=== PATIENT | female | born 1945 | race Caucasian/White ===

== ENCOUNTER 2021-03-27 18:21 | Emergency (ER) | payer MEDICARE, OTHER ==
[~2021-03-27] VITALS: Ht 160 cm; Wt 47.3 kg
[~2021-03-27 18:21] MED LIST: ANUSOL-HC30 GM PR; DILAUDID4 MG PO; DILTIAZEM HCL10 GM TOP; FERROUS SULFAT325 MG PO; FLUOXETINE HCL20 MG PO; FUROSEMIDE20 MG PO; IBUPROFEN200 M1 PO; IBUPROFEN400 MG PO; IBUPROFEN600 MG PO; IRON SUPPLEMEN325 MG PO; LEVOTHYROXINE50 MCG PO; LISINOPRIL PO; LISINOPRIL-HCT1 EAC2 PO; MAG-OXIDE400 MG PO; MAPAP325 MG PO; METOPROLOL TART25 MG PO; MULTIVITAMINS1 EAC7 PO; OXYCODON-ACETA1 EAC2 PO; PEPTO-BISM262 MG/15 PO; POLYETHYLENE G255 GM PO; TRAMADOL HCL50 MG PO; TYLENOL325 MG PO; VITAMIN B-1100 M1 PO; VITAMIN C60 MG PO; ZOLPIDEM TARTRA10 MG PO
--- NOTE | 2021-03-29 18:44 | EKG ---
[facility] [address] [facility] [place] [address] Signed Normal sinus rhythm Minimal voltage criteria for LVH, may be normal variant Borderline ECG When compared with ECG of 27-FEB-2019 10:49, premature atrial complexes are no longer present ST no longer depressed in Anterolateral leads T wave inversion no longer evident in Inferior leads T wave inversion no longer evident in Anterolateral leads Confirmed by NADJA DIETRICH DO ([id number]) on 03/29/2021 6:44:17 PM Electronically Signed By: NADJA DIETRICH DO 03/29/21 1844 PATIENT NAME: MILTON WALLACE Electrocardiogram DATE OF : 49 PHYSICIAN: NADJA DIETRICH DO REPORT #: [id number] REPORT IS CONFIDENTIAL AND NOT TO BE RELEASED WITHOUT AUTHORIZATION
== END 2021-03-27 21:10 | disposition home or self-care (01) ==
LOC: ED 18:21
DX: R41.0 Disorientation, unspecified (principal); I10 Essential (primary) hypertension; Z87.891 Personal history of nicotine dependence; Z88.2 Allergy status to sulfonamides; Z88.5 Allergy status to narcotic agent; Z79.899 Other long term (current) 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
CPT/HCPCS: 80053; 81001; 82140; 84484; 85025; 93005; 93010; 99285-25; G0480; J7040

== ENCOUNTER 2021-04-06 16:27 | Emergency (ER) | payer MEDICARE, OTHER ==
[~2021-04-06] VITALS: Ht 160 cm; Wt 47.3 kg
--- OUTSIDE RECORDS SUMMARY | 2021-04-06 16:34 | XMS ---
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 Beth VISIT COUNT (12 MO.) 2 [facility] TOTAL 2 NOTE: Visits indicate total known visits. 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
[2021-04-06] MEDS ORDERED: PROZAC20 MG PO (18:38)
[2021-04-06] MEDS ORDERED: ONDANSETRON ODT8 MG PO (18:46)
== END 2021-04-06 19:06 | disposition home or self-care (01) ==
LOC: ED 16:27
DX: R41.0 Disorientation, unspecified (principal); G31.2 Degeneration of nervous system due to alcohol; I10 Essential (primary) hypertension; Z88.5 Allergy status to narcotic agent; Z88.2 Allergy status to sulfonamides; Z79.899 Other long term (current) 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
CPT/HCPCS: 81001; 99285

== ENCOUNTER 2021-07-01 15:40 | Emergency (ER) | payer MEDICARE, OTHER ==
[~2021-07-01] VITALS: Ht 160 cm; Wt 51.5 kg
[~2021-07-01 15:40] MED LIST changes: +ONDANSETRON ODT8 MG PO; +PROZAC20 MG PO
[2021-07-01] MEDS ORDERED: QUETIAPINE FUMA25 MG PO (15:55)
[2021-07-01] MEDS ORDERED: FLUOXETINE HCL20 MG PO (15:55)
== END 2021-07-01 21:00 | disposition home or self-care (01) ==
LOC: ED 15:40
DX: F03.91 Unspecified dementia, unspecified severity, with behavioral disturbance (principal); F22 Delusional disorders; I10 Essential (primary) hypertension; Z88.2 Allergy status to sulfonamides; Z88.5 Allergy status to narcotic agent; Z79.899 Other long term (current) 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
CPT/HCPCS: 80053; 80500; 81001; 82140; 85025; 99284; G0480

== ENCOUNTER 2021-07-03 13:42 | Emergency (ER) | payer MEDICARE, OTHER ==
[~2021-07-03] VITALS: Ht 160 cm; Wt 51.5 kg
[~2021-07-03 13:42] MED LIST changes: +QUETIAPINE FUMA25 MG PO
--- OUTSIDE RECORDS SUMMARY | 2021-07-03 13:54 | XMS ---
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 - 2 Visits in 30 Days CARE PROVIDERS CASANDRA NAPOLES [facility] 04/07/2021-Current PHONE: [phone] [facility] Current PHONE: [phone] Shaun has no Care Guidelines for this patient. Beth VISIT COUNT (12 MO[address] [place] [address] TOTAL 5 NOTE: Visits indicate total known visits. 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 - Essential (primary) hypertension - Other nursing home (current) 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 - Allergy status to sulfonamides - Disorientation, unspecified - Allergy status to narcotic agent 03/27/2021 18:21 [facility] [place] TYPE: Emergency COMPLAINT: - CHEST PAIN DIAGNOSES: - Personal history of nicotine dependence - Chest pain, unspecified - Essential (primary) hypertension - Allergy status to sulfonamides - Disorientation, unspecified - Other rn long term care (current) 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 - Allergy status to narcotic agent INPATIENT VISIT TRACKING (12 MO.) No inpatient visits to display in this time frame [email or web address]
[2021-07-03] MEDS ORDERED: LORAZEPAM0.5 MG PO (19:58)
[2021-07-04] MEDS ORDERED: FLUOXETINE HCL20 MG PO (08:38)
== END 2021-07-03 20:20 | disposition home or self-care (01) ==
LOC: ED 13:42
DX: F03.91 Unspecified dementia, unspecified severity, with behavioral disturbance (principal); I10 Essential (primary) hypertension; Z90.710 Acquired absence of both cervix and uterus; Z90.89 Acquired absence of other organs; Z88.2 Allergy status to sulfonamides; Z88.5 Allergy status to narcotic agent; Z79.899 Other long term (current) 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
CPT/HCPCS: 99284; A9270-GY

== ENCOUNTER 2021-07-04 08:05 | Emergency (ER) | payer MEDICARE, OTHER ==
[~2021-07-04] VITALS: Ht 160 cm; Wt 49.1 kg
[~2021-07-04 08:05] MED LIST changes: +LORAZEPAM0.5 MG PO
--- OUTSIDE RECORDS SUMMARY | 2021-07-04 08:14 | XMS ---
PreManage Notification: MILTON WALLACE Security Family Day Care Provider Events No recent Security Events currently on file CRITERIA MET - [facility] - 2 Visits in 30 Days - 6 ED Visits in 6 Months CARE PROVIDERS CASANDRA N[place]ES [facility] 04/07/2021-Current PHONE: [phone] [facility] Current PHONE: [phone] Sahun has no Care Guidelines for this patient. ESo VISIT COUNT (12 MO.) [address] [place] [address] TOTAL 6 NOTE: Visits indicate total known visits. 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 - Essential (primary) hypertension - Other terminal gauger (current) 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 - Allergy status to sulfonamides - Disorientation, unspecified - Allergy status to narcotic agent 03/27/2021 18:21 [facility] [place] TYPE: Emergency COMPLAINT: - CHEST PAIN DIAGNOSES: - Personal history of nicotine dependence - Chest pain, unspecified - Essential (primary) hypertension - Allergy status to sulfonamides - Disorientation, unspecified - Other senior living (current) 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 - Allergy status to narcotic agent INPATIENT VISIT TRACKING (12 MO.) No inpatient visits to display in this time frame [id number]
[2021-07-04] MEDS ORDERED: FLUOXETINE HCL20 MG PO (08:38)
== END 2021-07-05 12:46 | disposition short-term general hospital (02) ==
LOC: ED 08:05
DX: F03.91 Unspecified dementia, unspecified severity, with behavioral disturbance (principal); I10 Essential (primary) hypertension; Z90.710 Acquired absence of both cervix and uterus; Z90.89 Acquired absence of other organs; Z88.2 Allergy status to sulfonamides; Z88.5 Allergy status to narcotic agent; Z79.899 Other long term (current) 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; Z20.822 Contact with and (suspected) exposure to COVID-19
CPT/HCPCS: 80053; 80500; 81001; 84443; 85025; 99285; A9270-GY; G0480; U0003

== ENCOUNTER 2023-06-13 17:27 | Emergency (ER) | payer MEDICARE, OTHER ==
[~2023-06-13] VITALS: Ht 160 cm; Wt 49.0 kg
[2023-06-13 17:44] LABS: BILIRUBIN, URINE NEGATIVE (negative); BLOOD/HGB, URINE NEGATIVE (Negative); KETONE, URINE NEGATIVE (Negative); LEUK ESTERASE, URINE NEGATIVE (negative); NITRITE, URINE NEGATIVE (negative); PH, URINE 5.5 (5-7)
[2023-06-13 17:51] LABS: BACTERIA, URINE NONE SEEN /hpf (negative); CASTS, URINE NONE SEEN \\lpf; COLLECTION TYPE, URINE CLEAN CATCH; CRYSTALS, URINE NONE SEEN (0-1+); EPITHELIAL CELLS, URINE 0 /lpf (0-1+); RED BLOOD CELLS, URINE 0-1 /hpf (0-5); REFLEX CULTURE, URINE No (No); WHITE BLOOD CELLS, URINE 0-1 /HPF (0-5)
[2023-06-13] MEDS ORDERED: LIDODERM1 EACH TOP (17:56)
[2023-06-13 18:12] VITALS: BP 185/105
== END 2023-06-13 18:08 | disposition home or self-care (01) ==
LOC: ED 17:27
PROVIDERS: Emergency Medicine
DX: M54.50 Low back pain, unspecified (principal); M85.88 Other specified disorders of bone density and structure, other site; M47.817 Spondylosis without myelopathy or radiculopathy, lumbosacral region; I10 Essential (primary) hypertension; F03.90 Unspecified dementia, unspecified severity, without behavioral disturbance, psychotic disturbance, mood disturbance, and anxiety; Z86.12 Personal history of poliomyelitis; Z88.2 Allergy status to sulfonamides; Z88.5 Allergy status to narcotic agent; Z79.899 Other long term (current) 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
CPT/HCPCS: 72100; 81001; 99283-25

== ENCOUNTER 2024-02-02 00:20 | Emergency (ER) | payer MEDICARE, OTHER ==
[~2024-02-02] VITALS: Ht 160 cm; Wt 68.0 kg
[~2024-02-02 00:20] MED LIST changes: +LIDODERM1 EACH TOP
--- OUTSIDE RECORDS SUMMARY | 2024-02-02 00:27 | XMS ---
PreManage Notification: MILTON WALLACE Security Collar Setter Events No recent Security Events currently on file CRITERIA MET - [facility] - 2 Visits in 30 Days CARE PROVIDERS CASANDRA NAPOLES [facility] 04/07/2021-Current PHONE: Unknown [facility] Current PHONE: Unknown Shaun has no Care Guidelines for this patient. Beth VISIT COUNT (12 MO.) [address] [place] [address] TOTAL 3 NOTE: Visits indicate total known visits. ED/UCC VISIT TRACKING (12 MO.) 02/02/2024 00:[address] [facility] [place] TYPE: Emergency COMPLAINT: - POSS DEHYDRATION 01/26/2024 16:58 [facility] [place] TYPE: Emergency COMPLAINT: - POSS DEHYDRATION DIZZINESS DIAGNOSES: - Allergy status to narcotic agent - Allergy status to sulfonamides - Dizziness and giddiness - Dry mouth, unspecified - Essential (primary) hypertension - Other custodial (current) 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 - Unspecified dementia, unspecified severity, without behavioral disturbance, psychotic disturbance, mood disturbance, and anxiety - Weakness 06/13/2023 17:[address] [facility] [facility] [address] [place] TYPE: Emergency COMPLAINT: - FLANK PAIN DIAGNOSES: - Allergy status to narcotic agent - Allergy status to sulfonamides - Essential (primary) hypertension - Low back pain, unspecified - Other custodial (current) 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 - Other specified disorders of bone density and structure, other site - Personal history of poliomyelitis - Spondylosis without myelopathy or radiculopathy, lumbosacral region - Unspecified dementia, unspecified severity, without behavioral disturbance, psychotic disturbance, mood disturbance, and anxiety INPATIENT VISIT TRACKING (12 MO.) No inpatient visits to display in this time frame [id number]
[2024-02-02] MEDS ORDERED: SODIUM CHLORIDE 0.9% 1,000 ML IV ONE (00:45)
[2024-02-02] MEDS ORDERED: droPERidol 5 MG/2 ML VIAL IV ONE ×2 (00:45→05:15)
[2024-02-02 00:54] LABS: BASOPHILS 0.2 % (0-2); EOSINOPHILS 0.4 % (0-6); HEMATOCRIT 40.4 % (35.0-50.0); HEMOGLOBIN 14.1 g/dL (12.0-18.0); MCH 30.2 (27-36); MCHC 34.9 g/dl (30-36); MCV 86.5 fl (81-99); MONOCYTES 5.7 % (0-12); NEUTROPHILS 82.7 % (39-80); PLATELET COUNT 234 K/uL (140-440); RBC 4.67 M/ul (4.3-5.7); RDW 13.7 (10.5-15.0)
[2024-02-02 01:11] LABS: ALBUMIN 4.2 g/dL (3.4-5.0); ALBUMIN/GLOBULIN RATIO 1.11 (1.1-2.4); BILIRUBIN, TOTAL 1.3 ng/dL (0.2-1.0); BUN/CREATININE RATIO 8.57 (6.0-28.6); CALCIUM 8.3 mg/dL (8.5-10.1); CREATININE, SERUM 0.7 mg/dL (0.55-1.02); MAGNESIUM 1.1 mg/dL (1.8-2.4); POTASSIUM 3.3 mmol/L (3.5-5.1)
[2024-02-02 01:27] LABS: ANION GAP 16.3 (7-21)
[2024-02-02] MEDS ORDERED: MAGNESIUM SULFATE 4 GM/100 ML BAG IV ONE (01:30)
[2024-02-02] MEDS ORDERED: Sodium Chloride 3% 500 ML IV ONE ×3 (01:45→04:30)
[2024-02-02] MEDS ORDERED: DESMOPRESSIN ACETATE 4 MCG/ML SUB-Q ONE (02:00)
[2024-02-02] MEDS ORDERED: DESMOPRESSIN ACETATE 4 MCG/ML AMP ONE (02:02)
[2024-02-02 02:46] LABS: CHOLESTEROL/HDL RATIO 2.7; TSH, 3RD GENERATION 1.088 uIU/mL (0.358-3.740)
[2024-02-02 02:51] LABS: BILIRUBIN, URINE NEGATIVE (negative); BLOOD/HGB, URINE NEGATIVE (Negative); KETONE, URINE TRACE (Negative); LEUK ESTERASE, URINE NEGATIVE (negative); NITRITE, URINE NEGATIVE (negative)
[2024-02-02 03:00] LABS: ANION GAP 10.4 (7-21); BUN/CREATININE RATIO 9.25 (6.0-28.6); CALCIUM 7.3 mg/dL (8.5-10.1); CREATININE, SERUM 0.54 mg/dL (0.55-1.02); MAGNESIUM 3.4 mg/dL (1.8-2.4); POTASSIUM 3.4 mmol/L (3.5-5.1)
[2024-02-02 05:16] VITALS: BP 146/83
--- NOTE | 2024-02-02 22:25 | EKG ---
[facility] [address] [facility] [place] [address] Signed Normal sinus rhythm Left axis deviation Moderate voltage criteria for LVH, may be normal variant ( R in aVL , [place] product ) Nonspecific T wave abnormality Prolonged QT Abnormal ECG When compared with ECG of 26-JAN-2024 17:38, Criteria for Septal infarct are no longer present QT has lengthened Confirmed by Arnie Arthur MD () on 02/02/2024 10:25:32 PM Electronically Signed By: ARNIE ARTHUR MD 02/02/24 2225 PATIENT NAME: MILTON WALLACE Electrocardiogram DATE OF : 49 PHYSICIAN: ARNIE ARTHUR MD REPORT #: [id number] REPORT IS CONFIDENTIAL AND NOT TO BE RELEASED WITHOUT AUTHORIZATION
[2024-02-03 08:26] LABS: OSMOLALITY 228 mOsm/kg (280-303)
[2024-02-03 13:03] LABS: CORTISOL,SERUM 30.4 ug/dL (())
[2024-02-03 18:52] LABS: URINE OSMOLALITY 207 mOsm/kg (50-800)
== END 2024-02-02 05:16 | disposition short-term general hospital (02) ==
LOC: ED 00:20
PROVIDERS: Family Medicine
DX: E87.1 Hypo-osmolality and hyponatremia (principal); E83.42 Hypomagnesemia; I10 Essential (primary) hypertension; Z88.2 Allergy status to sulfonamides; Z88.5 Allergy status to narcotic agent; Z79.899 Other long term (current) 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
CPT/HCPCS: 36415; 51702; 70450; 74177; 80048; 80053; 80061; 81003; 82533; 83690; 83735; 83930; 83935; 84295; 84300; 84443; 84484; 85025; 93005; 93010; 99285-25; J1790; J2597; J3475; J7030; J7131; Q9967

== ENCOUNTER 2024-02-18 22:25 | Emergency (ER) | payer MEDICARE, OTHER ==
[~2024-02-18] VITALS: Ht 160 cm; Wt 59.4 kg
--- OUTSIDE RECORDS SUMMARY | 2024-02-18 22:32 | XMS ---
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 Beth VISIT COUNT (12 MO[address] [place] [address] TOTAL 4 NOTE: Visits indicate total known visits. ED/UCC VISIT TRACKING (12 MO.) 02/18/2024 22:26 [facility] [place] TYPE: Emergency COMPLAINT: - SOB 02/02/2024 00:20 [facility] [place] TYPE: Emergency COMPLAINT: - POSS DEHYDRATION DIAGNOSES: - Allergy status to narcotic agent - Allergy status to sulfonamides - Essential (primary) hypertension - Hypo-osmolality and hyponatremia - Hypomagnesemia - Other assisted (current) 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 - Vomiting, unspecified 01/26/2024 16:58 [facility] [place] TYPE: Emergency COMPLAINT: - POSS DEHYDRATION DIZZINESS DIAGNOSES: - Allergy status to narcotic agent - Allergy status to sulfonamides - Dizziness and giddiness - Dry mouth, unspecified - Essential (primary) hypertension - Other assisted (current) 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 - Unspecified dementia, unspecified severity, without behavioral disturbance, psychotic disturbance, mood disturbance, and anxiety - Weakness 06/13/2023 17:28 [facility] [place] TYPE: Emergency COMPLAINT: - FLANK PAIN DIAGNOSES: - Allergy status to narcotic agent - Allergy status to sulfonamides - Essential (primary) hypertension - Low back pain, unspecified - Other assisted (current) 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 - Other specified disorders of bone density and structure, other site - Personal history of poliomyelitis - Spondylosis without myelopathy or radiculopathy, lumbosacral region - Unspecified dementia, unspecified severity, without behavioral disturbance, psychotic disturbance, mood disturbance, and anxiety INPATIENT VISIT TRACKING (12 MO.) 02/02/2024 06:36 [facility] [place] TYPE: Oncology DIAGNOSES: - Hypo-osmolality and hyponatremia - Hyponatremia [id number]
[2024-02-18 22:55] LABS: BASOPHILS 0.8 % (0-2); EOSINOPHILS 2.2 % (0-6); HEMATOCRIT 36.7 % (35.0-50.0); HEMOGLOBIN 12.1 g/dL (12.0-18.0); LYMPHOCYTES 24.8 % (24-44); MCH 29.6 (27-36); MCHC 32.9 g/dl (30-36); MCV 89.9 fl (81-99); MONOCYTES 10.8 % (0-12); NEUTROPHILS 61.4 % (39-80); PLATELET COUNT 261 K/uL (140-440); RBC 4.08 M/ul (4.3-5.7); RDW 14.6 (10.5-15.0)
[2024-02-18 23:11] LABS: ALBUMIN 3.5 g/dL (3.4-5.0); ALBUMIN/GLOBULIN RATIO 0.97 (1.1-2.4); ANION GAP 13.8 (7-21); BILIRUBIN, TOTAL 0.2 ng/dL (0.2-1.0); BUN/CREATININE RATIO 13.2 (6.0-28.6); CALCIUM 9.2 mg/dL (8.5-10.1); CREATININE, SERUM 1.06 mg/dL (0.55-1.02); POTASSIUM 3.8 mmol/L (3.5-5.1); PROTEIN, TOTAL 7.1 g/dL (6.4-8.2)
[2024-02-18 23:19] LABS: INFLUENZA B NAA NEGATIVE (NEGATIVE); RESPIRATORY SYNCYTIAL VIR NAA NEGATIVE (NEGATIVE)
[2024-02-19 00:04] VITALS: BP 117/77
== END 2024-02-19 00:04 | disposition home or self-care (01) ==
LOC: ED 22:25
PROVIDERS: Family Medicine
DX: R68.2 Dry mouth, unspecified (principal); R60.0 Localized edema; I10 Essential (primary) hypertension; Z88.2 Allergy status to sulfonamides; Z88.5 Allergy status to narcotic agent; Z79.899 Other long term (current) 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
CPT/HCPCS: 36415; 71045; 80053; 83880; 85025; 87502; 99283-25; U0002

== ENCOUNTER 2024-03-20 11:49 | Emergency (ER) | payer MEDICARE, OTHER ==
[~2024-03-20] VITALS: Ht 160 cm; Wt 59.0 kg
[2024-03-20] MEDS ORDERED: SODIUM CHLORI1000 M2 PO (12:25)
[2024-03-20] MEDS ORDERED: AMLODIPINE BESYL5 MG PO (12:25)
[2024-03-20 13:46] LABS: BILIRUBIN, URINE NEGATIVE (negative); BLOOD/HGB, URINE NEGATIVE (Negative); KETONE, URINE NEGATIVE (Negative); LEUK ESTERASE, URINE NEGATIVE (negative); NITRITE, URINE NEGATIVE (negative)
[2024-03-20 13:49] LABS: BASOPHILS 0.5 % (0-2); EOSINOPHILS 2.7 % (0-6); HEMATOCRIT 37.6 % (35.0-50.0); HEMOGLOBIN 12.6 g/dL (12.0-18.0); LYMPHOCYTES 24.8 % (24-44); MCH 30.1 (27-36); MCHC 33.6 g/dl (30-36); MCV 89.6 fl (81-99); MONOCYTES 10.5 % (0-12); NEUTROPHILS 61.5 % (39-80); PLATELET COUNT 187 K/uL (140-440); RDW 14.5 (10.5-15.0)
[2024-03-20 14:00] LABS: ALBUMIN 3.5 g/dL (3.4-5.0); ALBUMIN/GLOBULIN RATIO 0.97 (1.1-2.4); ANION GAP 11.7 (7-21); BILIRUBIN, TOTAL 0.3 ng/dL (0.2-1.0); BUN/CREATININE RATIO 12.79 (6.0-28.6); CALCIUM 8.7 mg/dL (8.5-10.1); CREATININE, SERUM 0.86 mg/dL (0.55-1.02); MAGNESIUM 1.8 mg/dL (1.8-2.4); POTASSIUM 3.7 mmol/L (3.5-5.1); PROTEIN, TOTAL 7.1 g/dL (6.4-8.2)
[2024-03-20 15:10] VITALS: BP 153/80
== END 2024-03-20 15:10 | disposition home or self-care (01) ==
LOC: ED 11:49
PROVIDERS: Emergency Medicine
DX: R42 Dizziness and giddiness (principal); I10 Essential (primary) hypertension; Z79.899 Other long term (current) 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; Z88.2 Allergy status to sulfonamides; Z88.5 Allergy status to narcotic agent
CPT/HCPCS: 36415; 80053; 81003; 83735; 85025; 99284

== ENCOUNTER 2024-06-06 19:26 | Emergency (ER) | payer MEDICARE, OTHER ==
[~2024-06-06] VITALS: Ht 160 cm; Wt 59.8 kg
[~2024-06-06 19:26] MED LIST changes: +AMLODIPINE BESYL5 MG PO; +SODIUM CHLORI1000 M2 PO
--- OUTSIDE RECORDS SUMMARY | 2024-06-06 19:30 | XMS ---
PreManage Notification: MILTON WALLACE Security Family Medicine Resident Events No recent Security Events currently on file CRITERIA MET - 6 ED Visits in 6 Months CARE PROVIDERS CASANDRA NAPOLES [facility] 04/07/2021-Current PHONE: Unknown [facility] Current PHONE: Unknown Shaun has no Care Guidelines for this patient. Beth VISIT COUNT (12 MO.) 7 [facility] TOTAL 7 NOTE: Visits indicate total known visits. ED/UCC VISIT TRACKING (12 MO.) 06/06/2024 19:26 [facility] [place] TYPE: Emergency COMPLAINT: - DIZZINESS 03/28/2024 23:55 [facility] [place] TYPE: Emergency COMPLAINT: - ANXIETY DIAGNOSES: - Allergy status to narcotic agent - Allergy status to other drugs, medicaments and biological substances - Allergy status to sulfonamides - Anxiety disorder, unspecified - Essential (primary) hypertension - Other retirement (current) 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 - Unspecified dementia, unspecified severity, with anxiety 03/20/2024 11:49 [facility] [place] TYPE: Emergency COMPLAINT: - DIZZINESS DIAGNOSES: - Allergy status to narcotic agent - Allergy status to sulfonamides - Dizziness and giddiness - Essential (primary) hypertension - Other longitudinal float operator (current) 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 02/18/2024 22:26 [facility] [place] TYPE: Emergency COMPLAINT: - SOB DIAGNOSES: - Allergy status to narcotic agent - Allergy status to sulfonamides - Dry mouth, unspecified - Essential (primary) hypertension - Localized edema - Other retirement (current) 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 - Shortness of breath 02/02/2024 00:20 [facility] [place] TYPE: Emergency COMPLAINT: - POSS DEHYDRATION DIAGNOSES: - Allergy status to narcotic agent - Allergy status to sulfonamides - Essential (primary) hypertension - Hypo-osmolality and hyponatremia - Hypomagnesemia - Other retirement (current) 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 - Vomiting, unspecified 01/26/2024 16:58 [facility] [place] TYPE: Emergency COMPLAINT: - POSS DEHYDRATION DIZZINESS DIAGNOSES: - Allergy status to narcotic agent - Allergy status to sulfonamides - Dizziness and giddiness - Dry mouth, unspecified - Essential (primary) hypertension - Other longitudinal float operator (current) 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 - Unspecified dementia, unspecified severity, without behavioral disturbance, psychotic disturbance, mood disturbance, and anxiety - Weakness 06/13/2023 17:28 [facility] TYPE: Emergency COMPLAINT: - FLANK PAIN DIAGNOSES: - Allergy status to narcotic agent - Allergy status to sulfonamides - Essential (primary) hypertension - Low back pain, unspecified - Other retirement (current) 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 - Other specified disorders of bone density and structure, other site - Personal history of poliomyelitis - Spondylosis without myelopathy or radiculopathy, lumbosacral region - Unspecified dementia, unspecified severity, without behavioral disturbance, psychotic disturbance, mood disturbance, and anxiety INPATIENT VISIT TRACKING (12 MO.) 02/02/2024 06:36 [facility] Maikol [place] TYPE: Oncology DIAGNOSES: - Hypo-osmolality and hyponatremia - Hyponatremia [id number]
[2024-06-06] MEDS ORDERED: PANTOPRAZOLE SO40 MG PO (19:38)
[2024-06-06] MEDS ORDERED: LIDOCAINE HCL 4% 1 EACH PATCH TD ONE (19:45)
[2024-06-06 20:24] LABS: BASOPHILS 0.6 % (0-2); EOSINOPHILS 1.7 % (0-6); HEMATOCRIT 39.1 % (35.0-50.0); HEMOGLOBIN 13.4 g/dL (12.0-18.0); LYMPHOCYTES 20.2 % (24-44); MCH 30.6 (27-36); MCHC 34.2 g/dl (30-36); MCV 89.5 fl (81-99); MONOCYTES 10.7 % (0-12); NEUTROPHILS 66.8 % (39-80); PLATELET COUNT 199 K/uL (140-440); RBC 4.37 M/ul (4.3-5.7); RDW 14.5 (10.5-15.0)
[2024-06-06 20:31] LABS: AMPHETAMINES, URINE NEGATIVE (NEGATIVE); BARBITURATES, URINE NEGATIVE (NEGATIVE); BENZODIAZEPINE, URINE NEGATIVE (NEGATIVE); BUPRENORPHINE, URINE NEGATIVE (NEGATIVE); CANNABINOID, URINE NEGATIVE (NEGATIVE); COCAINE, URINE NEGATIVE (NEGATIVE); ECSTASY, URINE NEGATIVE (NEGATIVE); FENTANYL, URINE NEGATIVE (NEGATIVE); METHADONE, URINE NEGATIVE (NEGATIVE); OPIATES, URINE NEGATIVE (NEGATIVE); OXYCODONE, URINE NEGATIVE (NEGATIVE); PHENCYCLIDINE, URINE NEGATIVE (NEGATIVE)
[2024-06-06 20:40] LABS: ALBUMIN 3.3 g/dL (3.4-5.0); ALBUMIN/GLOBULIN RATIO 0.92 (1.1-2.4); BILIRUBIN, TOTAL 0.2 ng/dL (0.2-1.0); BUN/CREATININE RATIO 26.58 (6.0-28.6); CALCIUM 9.1 mg/dL (8.5-10.1); CREATININE, SERUM 0.79 mg/dL (0.55-1.02); MAGNESIUM 1.7 mg/dL (1.8-2.4); PROTEIN, TOTAL 6.9 g/dL (6.4-8.2)
[2024-06-06] MEDS ORDERED: LIDODERM1 EACH TOP (20:53)
[2024-06-06 21:15] VITALS: BP 145/92
== END 2024-06-06 21:15 | disposition home or self-care (01) ==
LOC: ED 19:26
PROVIDERS: Family Medicine
DX: M54.9 Dorsalgia, unspecified (principal); R42 Dizziness and giddiness; I10 Essential (primary) hypertension; F03.90 Unspecified dementia, unspecified severity, without behavioral disturbance, psychotic disturbance, mood disturbance, and anxiety; Z88.2 Allergy status to sulfonamides; Z88.5 Allergy status to narcotic agent; Z79.899 Other long term (current) 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
CPT/HCPCS: 36415; 51702; 72080; 80053; 80307; 83735; 85025; 99284-25; A9270

== ENCOUNTER 2024-06-28 16:27 | Emergency (ER) | payer MEDICARE, OTHER ==
[~2024-06-28] VITALS: Ht 160 cm; Wt 59.0 kg
[~2024-06-28 16:27] MED LIST changes: +PANTOPRAZOLE SO40 MG PO
--- OUTSIDE RECORDS SUMMARY | 2024-06-28 16:33 | XMS ---
PreManage Notification: MILTON WALLACE Security Dials Supervisor Events No recent Security Events currently on file CRITERIA MET - 6 ED Visits in 6 Months - [facility] - 2 Visits in 30 Days CARE PROVIDERS CASANDRA NAPOLES [facility] 04/07/2021-Current PHONE: Unknown [facility] Current PHONE: Unknown Shaun has no Care Guidelines for this patient. Beth VISIT COUNT (12 MO.) [address] [place] [address] TOTAL 7 NOTE: Visits indicate total known visits. ED/UCC VISIT TRACKING (12 MO.) 06/28/2024 16:27 [facility] [address] [address] [place] TYPE: Emergency COMPLAINT: - HEADACHE 06/06/2024 19:26 [facility] [place] TYPE: Emergency COMPLAINT: - DIZZINESS DIAGNOSES: - Allergy status to narcotic agent - Allergy status to sulfonamides - Dizziness and giddiness - Dorsalgia, unspecified - Essential (primary) hypertension - Other bed bug exterminator (current) 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 - Unspecified dementia, unspecified severity, without behavioral disturbance, psychotic disturbance, mood disturbance, and anxiety 03/28/2024 23:55 [facility] [place] TYPE: Emergency COMPLAINT: - ANXIETY DIAGNOSES: - Allergy status to narcotic agent - Allergy status to other drugs, medicaments and biological substances - Allergy status to sulfonamides - Anxiety disorder, unspecified - Essential (primary) hypertension - Other group home (current) 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 - Unspecified dementia, unspecified severity, with anxiety 03/20/2024 11:49 [facility] [place] TYPE: Emergency COMPLAINT: - DIZZINESS DIAGNOSES: - Allergy status to narcotic agent - Allergy status to sulfonamides - Dizziness and giddiness - Essential (primary) hypertension - Other group home (current) 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 02/18/2024 22:26 [facility] [place] TYPE: Emergency COMPLAINT: - SOB DIAGNOSES: - Allergy status to narcotic agent - Allergy status to sulfonamides - Dry mouth, unspecified - Essential (primary) hypertension - Localized edema - Other group home (current) 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 - Shortness of breath 02/02/2024 00:20 [facility] TYPE: Emergency COMPLAINT: - POSS DEHYDRATION DIAGNOSES: - Allergy status to narcotic agent - Allergy status to sulfonamides - Essential (primary) hypertension - Hypo-osmolality and hyponatremia - Hypomagnesemia - Other group home (current) 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 - Vomiting, unspecified 01/26/2024 16:58 [facility] TYPE: Emergency COMPLAINT: - POSS DEHYDRATION DIZZINESS DIAGNOSES: - Allergy status to narcotic agent - Allergy status to sulfonamides - Dizziness and giddiness - Dry mouth, unspecified - Essential (primary) hypertension - Other bed bug exterminator (current) 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 - Unspecified dementia, unspecified severity, without behavioral disturbance, psychotic disturbance, mood disturbance, and anxiety - Weakness INPATIENT VISIT TRACKING (12 MO.) 02/02/2024 06:36 [facility] Maikol [place] TYPE: Oncology DIAGNOSES: - Hypo-osmolality and hyponatremia - Hyponatremia [id number]
[2024-06-28] MEDS ORDERED: ALEVE ARTHRITI100 GM TOP (16:42)
[2024-06-28] MEDS ORDERED: TYLENOL EXTRA500 MG PO (18:53)
[2024-06-28 19:27] VITALS: BP 165/94
== END 2024-06-28 19:28 | disposition home or self-care (01) ==
LOC: ED 16:27
DX: R51.9 Headache, unspecified (principal); I10 Essential (primary) hypertension; F03.90 Unspecified dementia, unspecified severity, without behavioral disturbance, psychotic disturbance, mood disturbance, and anxiety; Z88.2 Allergy status to sulfonamides; Z88.5 Allergy status to narcotic agent; Z79.899 Other long term (current) 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
CPT/HCPCS: 70450; 99284-25

== ENCOUNTER 2024-07-07 19:54 | Emergency (ER) | payer MEDICARE, OTHER ==
[~2024-07-07] VITALS: Ht 160 cm; Wt 57.3 kg
[~2024-07-07 19:54] MED LIST changes: +ALEVE ARTHRITI100 GM TOP; +TYLENOL EXTRA500 MG PO
--- OUTSIDE RECORDS SUMMARY | 2024-07-07 20:01 | XMS ---
PreManage Notification: MILTON WALLACE Security Distance Learning Program Coordinator Events No recent Security Events currently on file CRITERIA MET - 6 ED Visits in 6 Months - [facility] - 2 Visits in 30 Days CARE PROVIDERS CASANDRA NAPOLES [facility] 04/07/2021-Current PHONE: Unknown [facility] Current PHONE: Unknown Shaun has no Care Guidelines for this patient. Beth VISIT COUNT (12 MO.) [address] [place] [address] TOTAL 8 NOTE: Visits indicate total known visits. ED/UCC VISIT TRACKING (12 MO.) 07/07/2024 19:54 [facility] [place] TYPE: Emergency COMPLAINT: - DIZZY 06/28/2024 16:27 [facility] [place] TYPE: Emergency COMPLAINT: - HEADACHE DIAGNOSES: - Allergy status to narcotic agent - Allergy status to sulfonamides - Essential (primary) hypertension - Headache, unspecified - Other [facility] (current) 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 - Unspecified dementia, unspecified severity, without behavioral disturbance, psychotic disturbance, mood disturbance, and anxiety 06/06/2024 19:26 [facility] [address] [place] TYPE: Emergency COMPLAINT: - DIZZINESS DIAGNOSES: - Allergy status to narcotic agent - Allergy status to sulfonamides - Dizziness and giddiness - Dorsalgia, unspecified - Essential (primary) hypertension - Other [facility] (current) 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 - Unspecified dementia, unspecified severity, without behavioral disturbance, psychotic disturbance, mood disturbance, and anxiety 03/28/2024 23:55 [facility] [address] [place] TYPE: Emergency COMPLAINT: - ANXIETY DIAGNOSES: - Allergy status to narcotic agent - Allergy status to other drugs, medicaments and biological substances - Allergy status to sulfonamides - Anxiety disorder, unspecified - Essential (primary) hypertension - Other [facility] (current) 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 - Unspecified dementia, unspecified severity, with anxiety 03/20/2024 11:49 [facility] [address] [place] TYPE: Emergency COMPLAINT: - DIZZINESS DIAGNOSES: - Allergy status to narcotic agent - Allergy status to sulfonamides - Dizziness and giddiness - Essential (primary) hypertension - Other salvage determiner (current) 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 02/18/2024 22:26 [facility] [place] [address] [place] TYPE: Emergency COMPLAINT: - SOB DIAGNOSES: - Allergy status to narcotic agent - Allergy status to sulfonamides - Dry mouth, unspecified - Essential (primary) hypertension - Localized edema - Other salvage determiner (current) 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 - Shortness of breath 02/02/2024 00:[address] [place] TYPE: Emergency COMPLAINT: - POSS DEHYDRATION DIAGNOSES: - Allergy status to narcotic agent - Allergy status to sulfonamides - Essential (primary) hypertension - Hypo-osmolality and hyponatremia - Hypomagnesemia - Other salvage determiner (current) 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 - Vomiting, unspecified 01/26/2024 16:58 [facility] [place] TYPE: Emergency COMPLAINT: - POSS DEHYDRATION DIZZINESS DIAGNOSES: - Allergy status to narcotic agent - Allergy status to sulfonamides - Dizziness and giddiness - Dry mouth, unspecified - Essential (primary) hypertension - Other [facility] (current) 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 - Unspecified dementia, unspecified severity, without behavioral disturbance, psychotic disturbance, mood disturbance, and anxiety - Weakness INPATIENT VISIT TRACKING (12 MO.) 02/02/2024 06:36 [facility] KleverMarisa [place] TYPE: Oncology DIAGNOSES: - Hypo-osmolality and hyponatremia - Hyponatremia [email or web address]
[2024-07-07] MEDS ORDERED: ENALAPRILAT DIHYDRATE 1.25 MG/ML VIAL IV ONE (20:30)
[2024-07-07 20:33] LABS: BASOPHILS 0.5 % (0-2); EOSINOPHILS 1.4 % (0-6); HEMATOCRIT 40.3 % (35.0-50.0); HEMOGLOBIN 13.5 g/dL (12.0-18.0); LYMPHOCYTES 19.2 % (24-44); MCH 29.7 (27-36); MCHC 33.5 g/dl (30-36); MCV 88.9 fl (81-99); MONOCYTES 12.6 % (0-12); NEUTROPHILS 66.3 % (39-80); PLATELET COUNT 210 K/uL (140-440); RBC 4.54 M/ul (4.3-5.7); RDW 13.9 (10.5-15.0)
[2024-07-07 20:41] LABS: BILIRUBIN, URINE NEGATIVE (negative); BLOOD/HGB, URINE NEGATIVE (Negative); KETONE, URINE NEGATIVE (Negative); LEUK ESTERASE, URINE NEGATIVE (negative); NITRITE, URINE NEGATIVE (negative)
[2024-07-07 20:49] LABS: ALBUMIN 3.5 g/dL (3.4-5.0); ALBUMIN/GLOBULIN RATIO 0.97 (1.1-2.4); ANION GAP 14.9 (7-21); BILIRUBIN, TOTAL 0.3 ng/dL (0.2-1.0); BUN/CREATININE RATIO 12.9 (6.0-28.6); CALCIUM 8.9 mg/dL (8.5-10.1); CREATININE, SERUM 0.93 mg/dL (0.55-1.02); MAGNESIUM 1.6 mg/dL (1.8-2.4); POTASSIUM 3.9 mmol/L (3.5-5.1); PROTEIN, TOTAL 7.1 g/dL (6.4-8.2)
[2024-07-07] MEDS ORDERED: LISINOPRIL10 MG PO (21:43)
[2024-07-07] MEDS ORDERED: MAGNESIUM OXID400 M1 PO (21:43)
[2024-07-07] MEDS ORDERED: MAGNESIUM SULFATE 2 GM/50 ML BAG IV ONE (21:45)
[2024-07-07 22:23] VITALS: BP 125/86
== END 2024-07-07 22:24 | disposition home or self-care (01) ==
LOC: ED 19:54
PROVIDERS: Family Medicine
DX: I10 Essential (primary) hypertension (principal); E83.42 Hypomagnesemia; F03.90 Unspecified dementia, unspecified severity, without behavioral disturbance, psychotic disturbance, mood disturbance, and anxiety; Z88.2 Allergy status to sulfonamides; Z88.5 Allergy status to narcotic agent; Z79.899 Other long term (current) 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
CPT/HCPCS: 36415; 80053; 81003; 83735; 85025; 96374; 96375; 99283-25; J3475

== ENCOUNTER 2024-07-26 22:31 | Emergency (ER) | payer MEDICARE, OTHER ==
[~2024-07-26] VITALS: Ht 160 cm; Wt 60.8 kg
[~2024-07-26 22:31] MED LIST changes: +LISINOPRIL10 MG PO; +MAGNESIUM OXID400 M1 PO
--- OUTSIDE RECORDS SUMMARY | 2024-07-26 22:32 | XMS ---
PreManage Notification: MILTON WALLACE Security [employer]heries Diver Events No recent Security Events currently on file CRITERIA MET - 6 ED Visits in 6 Months - [facility] - 2 Visits in 30 Days CARE PROVIDERS CASANDRA NAPOLES Family Medicine 04/07/2021-Current PHONE: Unknown [facility] Current PHONE: Unknown Shaun has no Care Guidelines for this patient. Beth VISIT COUNT (12 MO.) [address] [place] [address] TOTAL 9 NOTE: Visits indicate total known visits. ED/UCC VISIT TRACKING (12 MO.) 07/26/2024 22:[address] [facility] [place] TYPE: Emergency COMPLAINT: - HIGH BP 07/07/2024 19:54 [facility] [place] TYPE: Emergency COMPLAINT: - DIZZY DIAGNOSES: - Allergy status to narcotic agent - Allergy status to sulfonamides - Dizziness and giddiness - Essential (primary) hypertension - Hypomagnesemia - Other termite control representative (current) 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 - Unspecified dementia, unspecified severity, without behavioral disturbance, psychotic disturbance, mood disturbance, and anxiety 06/28/2024 16:27 [facility] [address] [place] TYPE: Emergency COMPLAINT: - HEADACHE DIAGNOSES: - Allergy status to narcotic agent - Allergy status to sulfonamides - Essential (primary) hypertension - Headache, unspecified - Other residential (current) 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 - Unspecified dementia, unspecified severity, without behavioral disturbance, psychotic disturbance, mood disturbance, and anxiety 06/06/2024 19:26 [facility] [address] [place] TYPE: Emergency COMPLAINT: - DIZZINESS DIAGNOSES: - Allergy status to narcotic agent - Allergy status to sulfonamides - Dizziness and giddiness - Dorsalgia, unspecified - Essential (primary) hypertension - Other termite control representative (current) 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 - Unspecified dementia, unspecified severity, without behavioral disturbance, psychotic disturbance, mood disturbance, and anxiety [facility]24 [facility] [place] [facility] COMPLAINT: - ANXIETY DIAGNOSES: - Allergy status to narcotic agent - Allergy status to other drugs, medicaments and biological substances - Allergy status to sulfonamides - Anxiety disorder, unspecified - Essential (primary) hypertension - Other termite control representative (current) 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 - Unspecified dementia, unspecified severity, with anxiety 03/20/2024 11:49 [facility] [place] TYPE: Emergency COMPLAINT: - DIZZINESS DIAGNOSES: - Allergy status to narcotic agent - Allergy status to sulfonamides - Dizziness and giddiness - Essential (primary) hypertension - Other residential (current) 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 02/18/2024 22:26 [facility] [place] TYPE: Emergency COMPLAINT: - SOB DIAGNOSES: - Allergy status to narcotic agent - Allergy status to sulfonamides - Dry mouth, unspecified - Essential (primary) hypertension - Localized edema - Other termite control representative (current) 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 - Shortness of breath 02/02/2024 00:20 [facility] [place] TYPE: Emergency COMPLAINT: - POSS DEHYDRATION DIAGNOSES: - Allergy status to narcotic agent - Allergy status to sulfonamides - Essential (primary) hypertension - Hypo-osmolality and hyponatremia - Hypomagnesemia - Other termite control representative (current) 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 - Vomiting, unspecified 01/26/2024 16:58 [facility] [place] TYPE: Emergency COMPLAINT: - POSS DEHYDRATION DIZZINESS DIAGNOSES: - Allergy status to narcotic agent - Allergy status to sulfonamides - Dizziness and giddiness - Dry mouth, unspecified - Essential (primary) hypertension - Other residential (current) 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 - Unspecified dementia, unspecified severity, without behavioral disturbance, psychotic disturbance, mood disturbance, and anxiety - Weakness INPATIENT VISIT TRACKING (12 MO.) 02/02/2024 06:36 [facility] CARDONA TYPE: Oncology DIAGNOSES: - Hypo-osmolality and hyponatremia - Hyponatremia [email or web address]
[2024-07-27 04:10] LABS: BILIRUBIN, URINE NEGATIVE (negative); BLOOD/HGB, URINE NEGATIVE (Negative); KETONE, URINE NEGATIVE (Negative); LEUK ESTERASE, URINE NEGATIVE (negative); NITRITE, URINE NEGATIVE (negative); PH, URINE 6.5 (5-7)
[2024-07-27 06:32] VITALS: BP 149/91
== END 2024-07-27 06:30 | disposition home or self-care (01) ==
LOC: ED 22:31
PROVIDERS: Emergency Medicine
DX: I10 Essential (primary) hypertension (principal); T50.906A Underdosing of unspecified drugs, medicaments and biological substances, initial encounter; F03.90 Unspecified dementia, unspecified severity, without behavioral disturbance, psychotic disturbance, mood disturbance, and anxiety; Z91.148 Patient's other noncompliance with medication regimen for other reason; Z88.2 Allergy status to sulfonamides; Z88.5 Allergy status to narcotic agent; Z79.899 Other long term (current) 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
CPT/HCPCS: 81003; 99283

== ENCOUNTER 2024-11-26 21:00 | Emergency (ER) | payer OTHER, MEDICARE ==
[~2024-11-26] VITALS: Ht 160 cm; Wt 58.5 kg
[2024-11-26 22:21] LABS: BILIRUBIN, URINE NEGATIVE (negative); BLOOD/HGB, URINE NEGATIVE (Negative); KETONE, URINE NEGATIVE (Negative); LEUK ESTERASE, URINE NEGATIVE (negative); NITRITE, URINE NEGATIVE (negative); PH, URINE 6.5 (5-7)
[2024-11-26 22:26] LABS: BASOPHILS 0.3 % (0-2); HEMATOCRIT 38.4 % (35.0-50.0); HEMOGLOBIN 13.3 g/dL (12.0-18.0); LYMPHOCYTES 11.2 % (24-44); MCHC 34.5 g/dl (30-36); MONOCYTES 11.6 % (0-12); NEUTROPHILS 76.9 % (39-80); PLATELET COUNT 238 K/uL (140-440); RBC 4.57 M/ul (4.3-5.7); RDW 14.8 (10.5-15.0)
[2024-11-26] MEDS ORDERED: ACETAMINOPHEN 500 MG TAB PO ONE (22:30)
[2024-11-26 22:44] LABS: ALBUMIN 3.4 g/dL (3.4-5.0); ALBUMIN/GLOBULIN RATIO 0.89 (1.1-2.4); ANION GAP 10.7 (7-21); BILIRUBIN, TOTAL 0.3 mg/dL (0.2-1.0); BUN/CREATININE RATIO 22.89 (6.0-28.6); CALCIUM 9.1 mg/dL (8.5-10.1); CREATININE, SERUM 0.83 mg/dL (0.55-1.02); MAGNESIUM 1.6 mg/dL (1.8-2.4); POTASSIUM 4.7 mmol/L (3.5-5.1); PROTEIN, TOTAL 7.2 g/dL (6.4-8.2)
[2024-11-26] MEDS ORDERED: SODIUM CHLORIDE 0.9% 1,000 ML IV PRN (23:15)
[2024-11-27 00:05] VITALS: BP 140/87
[2024-11-28] MEDS ORDERED: PANTOPRAZOLE SO40 MG PO (09:17)
[2024-11-28] MEDS ORDERED: ATENOLOL50 MG PO (09:18)
[2024-11-28] MEDS ORDERED: CALCIUM 1,0001 EAC1 PO (09:18)
[2024-11-28] MEDS ORDERED: OLANZAPINE5 MG PO (09:19)
[2024-11-28] MEDS ORDERED: MECLIZINE HCL12.5 MG PO (09:19)
== END 2024-11-27 00:05 | disposition home or self-care (01) ==
LOC: ED 21:00
PROVIDERS: Internal Medicine
DX: S00.83XA Contusion of other part of head, initial encounter (principal); S80.12XA Contusion of left lower leg, initial encounter; W01.0XXA Fall on same level from slipping, tripping and stumbling without subsequent striking against object, initial encounter; E86.0 Dehydration; F03.90 Unspecified dementia, unspecified severity, without behavioral disturbance, psychotic disturbance, mood disturbance, and anxiety; I10 Essential (primary) hypertension; Z88.2 Allergy status to sulfonamides; Z88.5 Allergy status to narcotic agent; Z79.899 Other long term (current) 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
CPT/HCPCS: 36415; 70450; 71045; 72125; 73590; 80053; 81003; 83735; 84484; 85025; 99284-25; A9270

== ENCOUNTER 2024-11-28 08:33 | Emergency (ER) | payer MEDICARE, OTHER ==
[~2024-11-28] VITALS: Ht 160 cm; Wt 57.7 kg
--- OUTSIDE RECORDS SUMMARY | 2024-11-28 08:40 | XMS ---
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 [employer] In[employer] Events No recent Security Events currently on file CRITERIA MET - 6 ED Visits in 6 Months - [facility] - 2 Visits in 30 Days CARE PROVIDERS CASANDRA NAPOLES Family Medicine 04/07/2021-Current PHONE: Unknown FREDDY HOUSTON Chief Of Field Operationscarole VENTURA Sonal PHONE: [phone] [facility] Current PHONE: [phone] RONALD ORDAZ Family [facility] Current PHONE: Unknown Josey Curry Physician Assistant Bianca Robison PA-C PHONE: Unknown WERNER KITTY HAWK [facility] Current PHONE: Unknown Shaun has no Care Guidelines for this patient. Beth VISIT COUNT (12 MO.) Seymour Zhao TOTAL 11 NOTE: Visits indicate total known visits. ED/UCC VISIT TRACKING (12 MO.) 11/28/2024 08:33 [facility] [place] TYPE: Emergency COMPLAINT: - DIZZINESS 11/26/2024 21:01 [facility] [place] TYPE: Emergency COMPLAINT: - FALL DIAGNOSES: - Allergy status to narcotic agent - Allergy status to sulfonamides - Contusion of left lower leg, initial encounter - Contusion of other part of head, initial encounter - Dehydration - Essential (primary) hypertension - Fall on same level from slipping, tripping and stumbling without subsequent striking against object, initial encounter - Other jail (current) 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 - Unspecified dementia, unspecified severity, without behavioral disturbance, psychotic disturbance, mood disturbance, and anxiety 07/26/2024 22:31 [facility] [place] TYPE: Emergency COMPLAINT: - HIGH BP DIAGNOSES: - Allergy status to narcotic agent - Allergy status to sulfonamides - Essential (primary) hypertension - Other jail (current) 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 - Patient's other noncompliance with medication regimen for other reason - Underdosing of unspecified drugs, medicaments and biological substances, initial encounter - Unspecified dementia, unspecified severity, without behavioral disturbance, psychotic disturbance, mood disturbance, and anxiety 07/07/2024 19:54 [facility] [place] TYPE: Emergency COMPLAINT: - DIZZY DIAGNOSES: - Allergy status to narcotic agent - Allergy status to sulfonamides - Dizziness and giddiness - Essential (primary) hypertension - Hypomagnesemia - 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 - Unspecified dementia, unspecified severity, without behavioral disturbance, psychotic disturbance, mood disturbance, and anxiety 06/28/2024 16:27 [facility] [place] TYPE: Emergency COMPLAINT: - HEADACHE DIAGNOSES: - Allergy status to narcotic agent - Allergy status to sulfonamides - Essential (primary) hypertension - Headache, unspecified - 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 - Unspecified dementia, unspecified severity, without behavioral disturbance, psychotic disturbance, mood disturbance, and anxiety [facility]06[facility]2024 19[facility] [address] [place] [facility] COMPLAINT: - DIZZINESS DIAGNOSES: - Allergy status to narcotic agent - Allergy status to sulfonamides - Dizziness and giddiness - Dorsalgia, unspecified - Essential (primary) hypertension - Other jail (current) 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 - Unspecified dementia, unspecified severity, without behavioral disturbance, psychotic disturbance, mood disturbance, and anxiety 03/28/2024 23:[address] [facility] [address] [place] [facility]: [facility] COMPLAINT: - ANXIETY DIAGNOSES: - Allergy status to narcotic agent - Allergy status to other drugs, medicaments and biological substances - Allergy status to sulfonamides - Anxiety disorder, unspecified - Essential (primary) hypertension - 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 - Unspecified dementia, unspecified severity, with anxiety 03/20/2024 11:[address] [facility] [address] [place] [facility] COMPLAINT: - DIZZINESS DIAGNOSES: - Allergy status to narcotic agent - Allergy status to sulfonamides - Dizziness and giddiness - Essential (primary) hypertension - Other jail (current) 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 02/18/2024 22:[address] [place] TYPE: Emergency COMPLAINT: - SOB DIAGNOSES: - Allergy status to narcotic agent - Allergy status to sulfonamides - Dry mouth, unspecified - Essential (primary) hypertension - Localized edema - 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 - Shortness of breath 02/02/2024 00:20 [facility] [place] TYPE: Emergency COMPLAINT: - POSS DEHYDRATION DIAGNOSES: - Allergy status to narcotic agent - Allergy status to sulfonamides - Essential (primary) hypertension - Hypo-osmolality and hyponatremia - Hypomagnesemia - 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 - Vomiting, unspecified 01/26/2024 16:[address] [place] TYPE: Emergency COMPLAINT: - POSS DEHYDRATION DIZZINESS DIAGNOSES: - Allergy status to narcotic agent - Allergy status to sulfonamides - Dizziness and giddiness - Dry mouth, unspecified - Essential (primary) hypertension - 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
[2024-11-28] MEDS ORDERED: PANTOPRAZOLE SO40 MG PO (09:17)
[2024-11-28] MEDS ORDERED: CALCIUM 1,0001 EAC1 PO (09:18)
[2024-11-28] MEDS ORDERED: ATENOLOL50 MG PO (09:18)
[2024-11-28] MEDS ORDERED: MECLIZINE HCL12.5 MG PO (09:19)
[2024-11-28] MEDS ORDERED: OLANZAPINE5 MG PO (09:19)
[2024-11-28] MEDS ORDERED: ondansetron HCL 4 MG TAB PO ONE (10:15)
[2024-11-28 10:56] LABS: BASOPHILS 0.2 % (0-2); HEMATOCRIT 36.8 % (35.0-50.0); HEMOGLOBIN 12.6 g/dL (12.0-18.0); LYMPHOCYTES 9.1 % (24-44); MCH 28.6 (27-36); MCHC 34.2 g/dl (30-36); MCV 83.5 fl (81-99); MONOCYTES 11.8 % (0-12); NEUTROPHILS 78.9 % (39-80); PLATELET COUNT 234 K/uL (140-440); RBC 4.41 M/ul (4.3-5.7); RDW 14.6 (10.5-15.0)
[2024-11-28 11:12] LABS: ALBUMIN 3.1 g/dL (3.4-5.0); ALBUMIN/GLOBULIN RATIO 0.89 (1.1-2.4); BILIRUBIN, TOTAL 0.4 mg/dL (0.2-1.0); BUN/CREATININE RATIO 12.04 (6.0-28.6); CALCIUM 9.1 mg/dL (8.5-10.1); CREATININE, SERUM 0.83 mg/dL (0.55-1.02); PROTEIN, TOTAL 6.6 g/dL (6.4-8.2)
[2024-11-28 11:16] LABS: INR 1.15 (0.80-1.30)
[2024-11-28 11:58] LABS: BILIRUBIN, URINE NEGATIVE (negative); BLOOD/HGB, URINE NEGATIVE (Negative); KETONE, URINE NEGATIVE (Negative); LEUK ESTERASE, URINE NEGATIVE (negative); NITRITE, URINE NEGATIVE (negative); PH, URINE 6.5 (5-7)
[2024-11-28 13:19] VITALS: BP 125/74
== END 2024-11-28 13:19 | disposition home or self-care (01) ==
LOC: ED 08:33
PROVIDERS: Emergency Medicine
DX: F07.81 Postconcussional syndrome (principal); F03.90 Unspecified dementia, unspecified severity, without behavioral disturbance, psychotic disturbance, mood disturbance, and anxiety; I10 Essential (primary) hypertension; Z88.2 Allergy status to sulfonamides; Z88.5 Allergy status to narcotic agent; Z79.899 Other long term (current) 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
CPT/HCPCS: 36415; 70450; 80053; 81003; 85025; 85610; 99284-25; A9270